=== PATIENT | male | born 1965 | race Caucasian/White ===

== ENCOUNTER 2025-05-15 21:38 | Emergency (ER) | payer MEDICARE ==
[~2025-05-15] VITALS: Ht 190.5 cm; Wt 97.8 kg
[2025-05-15 21:53] VITALS: BP 144/89; PULSE 77; RESP 18; TEMP 98.4; O2SAT 98
[2025-05-15 22:02] VITALS: BP 144/89; PULSE 77; RESP 18; TEMP 98.4; O2SAT 98
[2025-05-15 22:50] VITALS: BP 144/90; PULSE 76; RESP 18; TEMP 98.4; O2SAT 98
[2025-05-15 23:50] VITALS: BP 150/92; PULSE 75; RESP 18; TEMP 98.4; O2SAT 98
[2025-05-16 00:45] VITALS: BP 154/90; PULSE 77; RESP 18; TEMP 98.4; O2SAT 98
== END 2025-05-16 00:51 | disposition home or self-care (01) ==
LOC: ER 21:38
DX: M79.605 Pain in left leg (principal); M79.89 Other specified soft tissue disorders; F17.200 Nicotine dependence, unspecified, uncomplicated; Z88.1 Allergy status to other antibiotic agents
CPT/HCPCS: 93971; 99284